=== PATIENT | female | born 1965 | race Caucasian/White ===

== ENCOUNTER 2017-04-07 12:33 | Emergency (ER) | payer OTHER ==
[2017-04-07 12:52] VITALS: TEMP 98.1; BMI 42.0
--- NOTE | 2017-04-07 13:12 | PDOC ---
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 Patients Menieres manifests as swishing soundin her year and she has never had vertigo until this on she experienced dizziness and "room spinning sensation lasting < 1min and self remitting while in the shower. She then had several similat episodes lasting minutes while at work, incited by looking down, and has had the symptoms today all day accompanied by nausea and one episode of NBNB vomiting. She denies h/a, bowel incontinence, f/c, change in vision, numbness, weakness or paresthesia, phinorrhea, sore throat, cough, chest pain, palpitations, cough, abd pain diarrhea, dysuria, LE edema. She had a negative cardiac w/u 2 y ago. She was urged to visit ER by her ENT and PCP. Patient has family HX of brain tumor in gma, OLS in father and parkinsons in mother. PCP Dr Rodriguez ENT Dr Liu 04/07/17 17:[address] Liu, ordered CT head-result negative for acute intracranial pathology. small lat. fromtal lobe calcified meningioma patient asked to f/u with ENT and PCP Past History - Travel Traveled outside of the country in the last 30 days: No Close contact w/someone who was outside of country & ill: No - Past Medical History Allergies/Adverse Reactions: Allergies Allergy/AdvReac Type Severity Reaction Status Date / Time No Known Allergies Allergy Verified 04/07/17 12:52 Home Medications: Ambulatory Orders Levothyroxine [Synthroid -] 0.125 mg PO DAILY 07/06/14 Triamterene/Hydrochlorothiazid [Triamterene-Hctz 37.5-25 mg Tb] 1 each PO DAILY 04/07/17 HTN: Yes Seizures: No Other medical history: MENIEERS SYNDROME - Surgical History Other Surgical History: 04/07/17 13:58 c section - Psycho/Social/Smoking Cessation Hx Anxiety: No Suicidal Ideation: No Smoking History: Former smoker Have you smoked in the past 12 months: No If you are a former smoker, when did you quit?: 20 YRS Information on smoking cessation initiated: No Substance Use Type: None Review of Systems - Review of Systems Able to Perform ROS?: Yes Is the patient limited Hebrew proficient: No Constitutional: No: Chills, Fever, Malaise, Weakness HEENTM: No: Blurred Vision, Recent change in vision, Nose Congestion, Throat Pain Respiratory: No: Cough, Orthopnea, Shortness of Breath, Wheezing, Productive cough Cardiac (ROS): No: Chest Pain, Edema, Irregular Heart Rate, Palpitations ABD/GI: No: Abdominal Distended, Nausea, Rectal Bleeding, Vomiting, Abdominal cramping, Tarry Stools : No: Burning, Dysuria Musculoskeletal: No: Back Pain, Neck Pain Integumentary: No: Bruising, Lesions Neurological: No: Headache, Numbness, Paresthesia, Pre-Existing Deficit, Seizure , Tremors, Weakness Psychiatric: No: Anxiety, Depression Endocrine: No: Excessive Sweating, Increased Thirst, Increased Urine Hematologic/Lymphatic: No: Anemia, Blood Clots, Easy Bleeding, Easy Bruising All Other Systems: Reviewed and Negative *Physical Exam - Vital Signs Last Vital Signs Temp Pulse Resp BP Pulse Ox 98.1 F 78 20 138/78 99 04/07/17 12:48 04/07/17 12:48 04/07/17 12:48 04/07/17 12:48 04/07/17 12:48 - Physical Exam Comments: 04/07/17 14:01 GENERAL: NAD, AAOX3 HEENT: NORMOCEPHALIC, ATRAUMATIC, PERRLA EOMI, NO SCLERAL ICTERUS, CONJUNCTIVA CLEAR PULM: CTA B/L CV: RRR, GRADE 2 SYST EJ MURMUR S1S2, NO JVD GI: SOFT, NONTENDER, NONDISTENDED, NORMOACTIVE BOWEL SOUNDS, NO MASS NEURO: CRANIAL NERVES INTACT, STRENGHT 5/5 IN ALL EXTREMITIES, SENSATION EQUAL AND INTACT, FINET TO NOSE TEST SLIGLTY IMPAIRED IN BOTH UE, RAPID ALTERNATING MOTION TEST NEGATIVE. NO NYSTAGMUS SKIN: NORMAL TURGOR EXTREMITIES: NO EDEMA, NO CALF TENDERNESS ED Treatment Course - LABORATORY CBC & Chemistry Diagram: 04/07/17 15:30 04/07/17 15:30 Medical Decision Making - Medical Decision Making 04/07/17 14:03 PATIENT EVALUATED SUSPECT VERTIGO: MENIERES VS CENTRAL LESS LIKELY ARRYTHMIC EVENT EKG, CBC W DIFF, CMP MECLIZINE, ZOFRAN, 500CC BOLUS ns 04/07/17 17:57 discharge home with meclozone and zofran prn, f/u with ENT *DC/Admit/Observation/Transfer Diagnosis at time of Disposition: Meniere disease, Vertigo - Discharge Dispostion Disposition: HOME Condition at time of disposition: Good Admit: No - Referrals Referrals: Asad Rodriguez MD [Primary Care Provider] - Warren Liu MD [Staff Physician] - - Patient Instructions Additional Instructions: You presented with vertigo. It is likley caused by Meniere disease. Your head CT was unremarkable. Please f/u winila Liu. Take Meclozine PRN for vertigo and zofran PRN for nausea. - Post Discharge Activity Work/School Note: Back to Work
[2017-04-07] MEDS ORDERED: MECLIZINE HCL 25 MG TABLET (FP) PO ONE (13:41)
[2017-04-07] MEDS ORDERED: SODIUM CHLORIDE 500 ML IV STA (13:42)
[2017-04-07] MEDS ORDERED: ONDANSETRON 4 MG/2 ML VIAL IVPUSH ONE (13:42)
--- NOTE | 2017-04-07 13:56 | PDOC ---
Attending Attestation - Resident Resident Name: SophiaJolie - ED Attending Attestation I have performed the following: I have examined & evaluated the patient, The case was reviewed & discussed with the resident, I agree w/resident's findings & plan - HPI HPI: 04/07/17 16:56 51y F hx of meniers disease presents with vertigo. The pt states she has a chronic 'whooshing' in her L ear, yesterday she started to have intemrittent vertigo worsening when looking down, but today started to feel very dizzy/off balance when she was at the [employer], that was persistent until she was in the ED and received meds. Pt denies any vision changes, dysarthrhia, neckpain, back pain, weakness, numbness, tingling weakness. Pt endorsed feeling like she was drunk when she was ambulating. pts exam was normal with no lateralizing findings neurologically, no cerebellar findings, mild extinguishing horizontal nystagmus. Pt states she currently feels improved after meclizine suspect peripheral cause of her vertigo will obtain ct head labs reviewed if negative will dc with fu with Dr. Liu as outpatient with meclizine 04/07/17 17:[address] head neg will dc the pt outpatient fu and mangement pt feeling improved, still feels very mild vertigo when ambulating, but much improved. at rest pt was asypmtomatic will dc to fu with dr. liu as outptt. - Physicial Exam PE: 04/08/17 09:52 see above - Medical Decision Making 04/08/17 09:52 see above Heart Score/ECG Review - ECG Impressions Comment:: 04/07/17 17:29 Twelve-lead EKG was performed and reviewed by me. There is normal sinus rhythm with a normal rate. Intervals are normal Normal axis
[2017-04-07] MEDS ORDERED: ONDANSETRON 4 MG/2 ML VIAL ONE (14:12)
[2017-04-07] MEDS ORDERED: MECLIZINE HCL 25 MG TABLET (FP) ONE (14:12)
[2017-04-07 15:37] LABS: BASOPHIL 0.6 % (0-2.0); EOSINOPHIL 0.9 % (0-4.5); MCH 27.5 pg (25.7-33.7); MCHC 33.7 g/dl (32.0-36.0); MEAN CELL VOLUME 81.8 fl (80-96); MEAN PLT VOLUME 8.5 fl (7.5-11.1); NEUTROPHILS 83.1 % (42.8-82.8); PLATELET COUNT 306 K/MM3 (134-434); RDW 15.4 % (11.6-15.6); WHITE BLOOD COUNT 12.8 K/mm3 (4.0-10.0)
[2017-04-07 16:03] LABS: ALBUMIN 4.1 g/dl (3.4-5.0); ANION GAP 12 (8-16); BILIRUBIN,TOTAL 0.4 mg/dL (0.2-1.0); CALCIUM 9.1 mg/dL (8.5-10.1); CO2 28 mmol/L (21-32); COCKROFT - GAULT 120.4195; CREATININE 0.9 mg/dL (0.55-1.02); GLUCOSE,RANDOM 110 mg/dL (74-106); SGOT/AST 19 U/L (15-37); SGPT/ALT 30 U/L (12-78); TOT PROT 8.1 g/dl (6.4-8.2)
[2017-04-07 16:04] LABS: ALK PHOS 79 U/L (45-117)
[2017-04-07 18:14] VITALS: BP 122/74; PULSE 78
--- NOTE | 2017-04-08 10:32 | EKG ---
Test Reason : Blood Pressure : / mmHG Vent. Rate : 071 BPM Atrial Rate : 071 BPM P-R Int : 178 ms QRS Dur : 080 ms QT Int : 404 ms P-R-T Axes : 050 007 012 degrees QTc Int : 439 ms NORMAL SINUS RHYTHM LOW VOLTAGE QRS BORDERLINE ECG WHEN COMPARED WITH ECG OF 06-JUL-2014 15:09, NO SIGNIFICANT CHANGE WAS FOUND Confirmed by HOA PHAM MD ([id number]) on 04/08/2017 10:32:22 AM Referred By: Confirmed By:HOA PHAM MD
== END 2017-04-07 18:15 | disposition home or self-care (01) ==
LOC: JER 12:33
PROC: 3E033GC Introduction of Other Therapeutic Substance into Peripheral Vein, Percutaneous Approach (ICD-10-PCS; principal; 2017-04-07)
DX: H81.09 Meniere's disease, unspecified ear (principal); I10 Essential (primary) hypertension
CPT/HCPCS: 36415; 70450-TC; 80053; 83735; 85025; 93005; 93010; 99285-25

== ENCOUNTER 2018-07-27 03:46 | Emergency (ER) | payer OTHER ==
[2018-07-27] MEDS ORDERED: PHENAZOPYRIDINE HCL 100 MG TABLET (FP) PO ONE (03:52)
[2018-07-27] MEDS ORDERED: CEPHALEXIN MONOHYDRATE 500 MG CAPSULE (UD) PO ONE (03:53)
--- NOTE | 2018-07-27 03:55 | PDOC ---
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 Denies fevers, chills, abdominal pain, flank pain. States feels like prior UTIs. Past History - Past Medical History Allergies/Adverse Reactions: Allergies Allergy/AdvReac Type Severity Reaction Status Date / Time No Known Allergies Allergy Verified 07/27/18 03:48 Home Medications: Ambulatory Orders Levothyroxine [Synthroid -] 0.125 mg PO DAILY 07/06/14 Triamterene/Hydrochlorothiazid [Triamterene-Hctz 37.5-25 mg Tb] 1 each PO DAILY 04/07/17 Cephalexin Monohydrate [Keflex -] 500 mg PO BID #14 capsule 07/27/18 Phenazopyridine HCl [Pyridium] 200 mg PO TID PRN #5 tablet 07/27/18 HTN: Yes Seizures: No - Suicide/Smoking/Psychosocial Hx Smoking History: Former smoker Have you smoked in the past 12 months: No If you are a former smoker, when did you quit?: 20 YRS Substance Use Type: None Review of Systems - Review of Systems Able to Perform ROS?: Yes Comments:: 07/27/18 03:56 GENERAL/CONSTITUTIONAL: [No fever or chills. No weakness. No weight change.] HEAD, EYES, EARS, NOSE AND THROAT: [No change in vision. No ear pain or discharge. No sore throat.] CARDIOVASCULAR: [No chest pain or shortness of breath.] RESPIRATORY: [No cough, wheezing, or hemoptysis.] GASTROINTESTINAL: [No nausea, vomiting, diarrhea or constipation. No rectal bleeding.] GENITOURINARY: [No frequency, or change in urination.] +dysuria MUSCULOSKELETAL: [No joint or muscle swelling or pain. No neck or back pain.] SKIN AND BREASTS: [No rash or easy bruising.] NEUROLOGIC: [No headache, vertigo, loss of consciousness, or loss of sensation.] PSYCHIATRIC: [No depression or anxiety.] ENDOCRINE: [No increased thirst. No abnormal weight change.] HEMATOLOGIC/LYMPHATIC: [No anemia, easy bleeding, or history of blood clots.] ALLERGIC/IMMUNOLOGIC: [No hives or skin allergy. No latex allergy.] *Physical Exam - Physical Exam Comments: 07/27/18 03:57 GENERAL: Awake, alert, and fully oriented, in no acute distress HEAD: No signs of trauma EYES: EOMI, sclera anicteric, conjunctiva clear ENT: Auricles normal inspection, hearing grossly normal, nares patent Moist mucosa NECK: Normal ROM, supple ABDOMEN: Soft, nontender, No guarding, no rebound. No masses EXTREMITIES: Normal range of motion, no edema. No clubbing or cyanosis. No cords, erythema, or tenderness NEUROLOGICAL: Cranial nerves II through XII grossly intact. Normal speech, normal gait SKIN: Warm, Dry, normal turgor, no rashes or lesions noted. Medical Decision Making - Medical Decision Making 07/27/18 03:57 Pt's history and physical c/w UTI. Start empiric cephalexin. Obtain UA/UC pyridium for pain. Pt informed of discoloration of urine 2/2 pyridium Follow up urine culture. Return precautions given. *DC/Admit/Observation/Transfer Diagnosis at time of Disposition: UTI (urinary tract infection) Qualifiers: Urinary tract infection type: acute cystitis Hematuria presence: without hematuria Qualified Code(s): N30.00 - Acute cystitis without hematuria - Discharge Dispostion Disposition: HOME Condition at time of disposition: Stable Decision to Admit order: No - Prescriptions Prescriptions: Cephalexin Monohydrate [Keflex -] 500 mg PO BID #14 capsule Phenazopyridine HCl [Pyridium] 200 mg PO TID PRN #5 tablet PRN Reason: Bladder Spasm - Referrals - Patient Instructions Printed Discharge Instructions: DI for Urinary Tract Infection (UTI) Additional Instructions: Take 500 mg cephalexin every 12 hours for 1 week. Please call back to the ER in the next 1 to 2 days for the urine culture results. Take pyridium 200 mg every 8 hours as needed for bladder pain. Drink plenty of fluids and rest. - Post Discharge Activity
[2018-07-27 04:01] VITALS: BP 143/83; PULSE 80; TEMP 98.2; BMI 40.0
[2018-07-27 04:51] LABS: HCG,QUALITATIVE URINE NEGATIVE
[2018-07-27 04:55] LABS: URINE APPEARANCE CLEAR; URINE BILIRUBIN NEGATIVE (<2.0 mg/dL); URINE COLOR STRAW; URINE GLUCOSE (UA) NEGATIVE (NEGATIVE); URINE KETONE NEGATIVE (NEGATIVE); URINE NITRITE NEGATIVE (NEGATIVE); URINE PROTEIN NEGATIVE (NEGATIVE); URINE UROBILINOGEN NEGATIVE mg/dL (0.2-1.0)
[2018-07-27 05:00] LABS: URINE LEUK ESTERASE 3+ (NEGATIVE)
[2018-07-27 05:02] LABS: EPI CELLS RARE /HPF (FEW); URINE BACTERIA FEW /hpf (NONE SEEN); URINE MUCUS RARE
== END 2018-07-27 04:04 | disposition home or self-care (01) ==
LOC: FER 03:46
DX: N30.00 Acute cystitis without hematuria (principal); I10 Essential (primary) hypertension; Z87.891 Personal history of nicotine dependence
CPT/HCPCS: 81003; 81015; 84703; 87086; 87186; 99281-25

== ENCOUNTER 2019-12-03 08:48 | Emergency (ER) | payer OTHER ==
[2019-12-03 09:03] VITALS: BP 144/77; PULSE 85; TEMP 99.3; BMI 39.3
[2019-12-03] MEDS ORDERED: ALBUTEROL SO4 2.5/IPRATROPIUM 0.5 INH SOL 3 ML VIAL.NEB. NEB ONE ×3 (09:04→09:17)
[2019-12-03] MEDS ORDERED: predniSONE 20 MG TABLET (UD) PO ONE (09:04)
[2019-12-03] MEDS ORDERED: predniSONE 20 MG TABLET (UD) ONE (09:05)
--- NOTE | 2019-12-03 09:09 | PDOC ---
History of Present Illness - General Chief Complaint: Asthma Stated Complaint: asthma Time Seen by Provider: 12/03/19 08:50 History Source: Patient Exam Limitations: No Limitations - History of Present Illness Initial Comments: 12/03/19 09:07 53 y/o female with hx of asthma presents to ER with cough wheezing and mild SOB since Wednesday. Denies fever, traveling or chest pain. Used inhaler. No N/V/d/C. Productive cough. Is this a multiple visit Asthma Patient?: No Past History - Past Medical History Allergies/Adverse Reactions: Allergies Allergy/AdvReac Type Severity Reaction Status Date / Time No Known Allergies Allergy Verified 12/03/19 08:49 Home Medications: Ambulatory Orders Levothyroxine [Synthroid -] 0.125 mg PO DAILY 07/06/14 Triamterene/Hydrochlorothiazid [Triamterene-Hctz 37.5-25 mg Tb] 1 each PO DAILY 04/07/17 Albuterol Sulfate Inhaler - [Ventolin HFA Inhaler -] 2 inh PO Q6H #1 inh Azithromycin [Zithromax -] 250 mg PO UTDICT #6 tab 12/03/19 predniSONE [Deltasone -] 20 mg PO BID #10 tablet 12/03/19 COPD: No HTN: Yes Seizures: No Thyroid Disease: Yes - Psycho Social/Smoking Cessation Hx Smoking History: Former smoker Have you smoked in the past 12 months: No If you are a former smoker, when did you quit?: 20 YRS Information on smoking cessation initiated: No Hx Alcohol Use: No Drug/Substance Use Hx: No Substance Use Type: None Review of Systems - Review of Systems Able to Perform ROS?: Yes Is the patient limited Frisian proficient: No Constitutional: No: Chills, Fever HEENTM: No: Throat Pain Respiratory: Yes: Cough, Shortness of Breath, Wheezing Cardiac (ROS): No: Chest Pain ABD/GI: No: Nausea, Vomiting All Other Systems: Reviewed and Negative *Physical Exam - Vital Signs Last Vital Signs Temp Pulse Resp BP Pulse Ox 99.3 F 85 20 144/77 98 12/03/19 08:49 12/03/19 08:49 12/03/19 08:49 12/03/19 08:49 12/03/19 08:49 - Physical Exam General Appearance: Yes: Nourished, Appropriately Dressed. No: Apparent Distress HEENT: positive: EOMI, ARISTIDES, Normal ENT Inspection, Normal Voice, Symmetrical, Pharynx Normal Neck: positive: Trachea midline, Normal Thyroid, Supple. negative: Tender, Rigid, Carotid bruit Respiratory/Chest: negative: Chest Tender, Lungs Clear (coarse breath sounds with mild expiratory wheezing b/l), Normal Breath Sounds, Respiratory Distress Cardiovascular: positive: Regular Rhythm, Regular Rate, S1, S2. negative: Edema , JVD, Murmur Vascular Pulses: Femoral (R): 4+, Femoral (L): 4+, Carotid (R): 4+, Carotid (L) : 4+, Dorsalis-Pedis (R): 4+, Doralis-Pedis (L): 4+ Gastrointestinal/Abdominal: positive: Normal Bowel Sounds, Flat, Soft. negative : Tender, Organomegaly Lymphatic: negative: Adenopathy, Tenderness, Other Musculoskeletal: positive: Normal Inspection. negative: CVA Tenderness Extremity: positive: Normal Capillary Refill, Normal Inspection, Normal Range of Motion. negative: Calf Tenderness Integumentary: positive: Normal Color, Dry, Warm Neurologic: positive: supervisor long goods II-XII NML intact, Fully Oriented, Alert, Normal Mood/ Affect, Normal Response, Motor Strength 5/5 ED Progress Note - Progress Note Progress Note: 12/03/19 09:11 53 y/o female with asthmatic bronchitis Will treat with Prednisone and DuoNeb Will place on Z-pack at home Pt feeling better after treatment Lungs CTA b/l Pt is in agreement with plan Discharge - Discharge Information Problems reviewed: Yes Clinical Impression/Diagnosis: Asthmatic bronchitis Qualifiers: Asthma severity: mild Asthma persistence: persistent Asthma complication type: with acute exacerbation Qualified Code(s): J45.31 - Mild persistent asthma with (acute) exacerbation Condition: Good Disposition: HOME - Admission No - Follow up/Referral - Patient Discharge Instructions Patient Printed Discharge Instructions: DI for Acute Bronchitis, Asthma -- Adult Additional Instructions: Prednisone 20 mg 2x/day for 5 days Z-pack as directed Albuterol as directed If worsen return to ER - Post Discharge Activity
== END 2019-12-03 09:32 | disposition home or self-care (01) ==
LOC: FER 08:48
PROC: 3E0F7GC Introduction of Other Therapeutic Substance into Respiratory Tract, Via Natural or Artificial Opening (ICD-10-PCS; principal; 2019-12-03)
DX: J45.31 Mild persistent asthma with (acute) exacerbation (principal)
CPT/HCPCS: 99281-25

== ENCOUNTER 2020-10-11 05:44 | Day surgery (SDC) | payer OTHER ==
[2020-10-10 15:50] VITALS: BMI 39.9
[2020-10-11] MEDS ORDERED: LIDOCAINE HCL/PF 2% SDV 5ML VIAL ONE (07:22)
[2020-10-11] MEDS ORDERED: PROPOFOL 20 ML ONE ×2 (07:23)
[2020-10-11] MEDS ORDERED: MIDAZOLAM HCL 2 MG/2 ML SINGLE DOSE VIAL ONE (07:24)
[2020-10-11] MEDS ORDERED: oxyCODONE HCL 5 MG TABLET PO PRN ×2 (07:49→08:58)
[2020-10-11] MEDS ORDERED: ONDANSETRON 4 MG/2 ML VIAL IVPUSH PRN ×2 (07:49→08:58)
[2020-10-11] MEDS ORDERED: LACTATED RINGERS SOLUTION 1,000 ML IV SCH (08:00)
[2020-10-11] MEDS ORDERED: DEXAMETHASONE SOD PHOSPHATE 4 MG/1 ML VIAL ONE (08:10)
[2020-10-11] MEDS ORDERED: KETOROLAC TROMETHAMINE 30 MG/1 ML VIAL ONE (08:10)
[2020-10-11] MEDS ORDERED: IBUPROFEN 600 MG TABLET (FP) PO PRN (08:58)
[2020-10-11] MEDS ORDERED: IBUPROFEN 800 MG/8 ML IJ IVPB PRN (08:58)
[2020-10-11] MEDS ORDERED: ELECTROLYTE-148 SOLN 1,000 ML IV SCH (09:00)
[2020-10-11 11:09] VITALS: BP 107/68; PULSE 57; TEMP 97.3
== END 2020-10-11 11:15 | disposition home or self-care (01) ==
LOC: JASU-SURG 05:44
PROVIDERS: ATTEND Obstetrics & Gynecology
PROC: 0UJD8ZZ Inspection of Uterus and Cervix, Via Natural or Artificial Opening Endoscopic (ICD-10-PCS; 2020-10-11)
PROC: 0UB98ZZ Excision of Uterus, Via Natural or Artificial Opening Endoscopic (ICD-10-PCS; principal; 2020-10-11 08:00)
PROC: 0UDB7ZX Extraction of Endometrium, Via Natural or Artificial Opening, Diagnostic (ICD-10-PCS; 2020-10-11 08:00)
DX: N95.0 Postmenopausal bleeding (principal); D25.0 Submucous leiomyoma of uterus
CPT/HCPCS: 88305-TC; 94760

== ENCOUNTER 2020-12-25 19:28 | Emergency (ER) | payer OTHER ==
[2020-12-25 19:45] VITALS: TEMP 99; BMI 42.5
[2020-12-25] MEDS ORDERED: LACTATED RINGERS SOLUTION 1,000 ML/1,000 ML INFUS.BAG IV STA (20:09)
[2020-12-25] MEDS ORDERED: ONDANSETRON 4 MG/2 ML VIAL IVPUSH ONE (20:09)
[2020-12-25] MEDS ORDERED: FAMOTIDINE 20 MG/50 ML IVPB 20 MG/50 ML MG IVPB ONE ×2 (20:09→20:35)
[2020-12-25] MEDS ORDERED: ONDANSETRON 4 MG/2 ML VIAL ONE (20:35)
[2020-12-25 21:01] LABS: BASO % 0.4 % (0-2.0); EOS % 0.2 % (0-4.5); HEMATOCRIT 34.9 % (32.4-45.2); HEMOGLOBIN 12.1 GM/dL (10.7-15.3); LYMPH % 5.2 % (8-40); MCH 27.9 pg (25.7-33.7); MCHC 34.7 g/dl (32.0-36.0); MEAN CELL VOLUME 80.4 fl (80-96); MEAN PLT VOLUME 7.9 fl (7.5-11.1); NEUT % 86.2 % (42.8-82.8); PLATELET COUNT 253 K/MM3 (134-434); RBC 4.35 M/mm3 (3.60-5.2); RDW 14.4 % (11.6-15.6); WHITE BLOOD COUNT 9.3 K/mm3 (4.0-10.0)
[2020-12-25 21:09] LABS: PH,URINE 5.5 (5.0-8.0); URINE APPEARANCE CLEAR; URINE BILIRUBIN NEGATIVE (NEGATIVE); URINE COLOR YELLOW; URINE GLUCOSE (UA) NEGATIVE (NEGATIVE); URINE KETONE NEGATIVE (NEGATIVE); URINE LEUK ESTERASE NEGATIVE (NEGATIVE); URINE NITRITE NEGATIVE (NEGATIVE); URINE PROTEIN NEGATIVE (NEGATIVE); URINE UROBILINOGEN 0.2 mg/dL (0.2-1.0)
[2020-12-25 21:19] LABS: POTASSIUM 3.3 mmol/L (3.5-5.1)
[2020-12-25 21:21] LABS: CALCIUM 8.7 mg/dL (8.5-10.1)
[2020-12-25 21:22] LABS: ALBUMIN 3.2 g/dl (3.4-5.0); BLOOD UREA NITROGEN 12.6 mg/dL (7-18); MAGNESIUM 1.8 mg/dL (1.8-2.4)
[2020-12-25 21:25] LABS: CREATININE 0.8 mg/dL (0.55-1.3)
[2020-12-25 21:26] LABS: BILIRUBIN,TOTAL 0.5 mg/dL (0.2-1); TOT PROT 6.5 g/dl (6.4-8.2)
[2020-12-25] MEDS ORDERED: POTASSIUM CHLORIDE TABS 20 MEQ TABLET.ER (FP) PO ONE ×2 (21:29→21:39)
[2020-12-25] MEDS ORDERED: SUCRALFATE 1 GM/10 ML UNIT DOSE CUPS PO ONE (22:19)
[2020-12-25] MEDS ORDERED: PANTOPRAZOLE SODIUM 40 MG VIAL IVPUSH ONE (22:21)
[2020-12-25] MEDS ORDERED: SUCRALFATE 1 GM TABLET (FP) ONE (22:47)
[2020-12-25] MEDS ORDERED: PANTOPRAZOLE SODIUM 40 MG VIAL ONE (22:48)
[2020-12-25] MEDS ORDERED: ONDANSETRON *ODT* 4 MG TABLET SL ONE (23:33)
[2020-12-25 23:35] VITALS: BP 105/51; PULSE 79
[2020-12-25] MEDS ORDERED: ONDANSETRON *ODT* 4 MG TABLET ONE (23:46)
== END 2020-12-25 23:53 | disposition home or self-care (01) ==
LOC: JER 19:28
PROC: 3E033GC Introduction of Other Therapeutic Substance into Peripheral Vein, Percutaneous Approach (ICD-10-PCS; principal; 2020-12-25)
PROC: 3E033GC Introduction of Other Therapeutic Substance into Peripheral Vein, Percutaneous Approach (ICD-10-PCS; 2020-12-25)
PROC: 3E033GC Introduction of Other Therapeutic Substance into Peripheral Vein, Percutaneous Approach (ICD-10-PCS; 2020-12-25)
DX: E87.6 Hypokalemia (principal); R10.84 Generalized abdominal pain; R11.2 Nausea with vomiting, unspecified
CPT/HCPCS: 36415; 71045-TC-FY; 80053; 81003; 83605; 83690; 83735; 85025; 86850; 86900; 86901; 93005; 93010; 99285-25; C9803; U0003

== ENCOUNTER 2021-09-30 15:14 | Emergency (ER) | payer OTHER ==
[2021-09-30 15:40] VITALS: BMI 41.3
[2021-09-30] MEDS ORDERED: CASIRIVIMAB/IMDEVIMAB 10 ML in SODIUM CHLORIDE 100 ML IVPB ONE (15:49)
[2021-09-30 18:12] LABS: HEMATOCRIT 38.3 % (32.4-45.2); HEMOGLOBIN 13.6 GM/dL (10.7-15.3); MCH 27.4 pg (25.7-33.7); MCHC 35.4 g/dl (32.0-36.0); MEAN CELL VOLUME 77.4 fl (80-96); PLATELET COUNT 241 10^3/uL (134-434); RBC 4.95 M/mm3 (3.60-5.2); RDW 14.4 % (11.6-15.6); WHITE BLOOD COUNT 7.7 K/mm3 (4.0-10.0)
[2021-09-30 18:41] LABS: CALCIUM 9.6 mg/dL (8.5-10.1)
[2021-09-30 18:42] LABS: BLOOD UREA NITROGEN 16.2 mg/dL (7-18)
[2021-09-30 18:45] LABS: CREATININE 0.9 mg/dL (0.55-1.3)
[2021-09-30 18:47] LABS: BILIRUBIN,TOTAL 0.4 mg/dL (0.2-1); TOT PROT 8.2 g/dl (6.4-8.2)
[2021-09-30 19:53] VITALS: TEMP 98.1
[2021-09-30 19:55] VITALS: BP 106/71; PULSE 79
== END 2021-09-30 19:32 | disposition home or self-care (01) ==
LOC: JCOVINFU 15:14
DX: U07.1 COVID-19 (principal)
CPT/HCPCS: 36415; 80053; 85027; 99284-25; Q0240